=== PATIENT | female | born 2000 | race Native Hawaiian/Other Pacific Islander ===

== ENCOUNTER 2022-09-26 12:11 | Emergency (ER) | payer BC, SELFPAY ==
[2022-09-26 12:43] VITALS: BP 112/64; PULSE 74; RESP 18; TEMP 36.4; O2SAT 98; BMI 28.3
--- NOTE | 2022-09-26 14:59 | ED.NEUROSD ---
HPI - Neuro Symptoms/Deficit General Time Seen by Provider: 15:00 Date Seen: 09/26/22 Chief Complaint: Neuro Symptoms/Altered Deficit Stated Complaint: R side face numb Time Seen by Provider: 09/26/22 14:57 Source: patient and RN notes reviewed Mode of arrival: ambulatory Limitations: no limitations History of Present Illness HPI Narrative: Patient is a very pleasant 22-year-old female previously healthy and denies who comes to the emergency room for evaluation regarding right facial droop. Patient states that she went to work on MondaySeptember 23 and her coworkers noted that she was talking funny. They states she was talking out the left side of her mouth. States that she at did not notice it but it has worsened. And she notes that she has cannot move the right side of her face. She does agree that her right side of her face feels funny because it will not move. She agrees that she has altered taste on her tongue. She denies any loud sound in her ears. She has not been experiencing any lesions. She has not had fever or chills or any vomiting. She notes that she has a funny sensation around her right eyebrow. She has never had anything like this happened to her in the past. She notes no other weakness. She is able to close her eyes. Related Data Previous Rx's Medication Instructions Recorded prednisone 20 mg tablet 40 mg PO BID 7 days #28 tabs 09/26/22 valacyclovir 1 gram tablet 1,000 mg PO TID #21 tabs 09/26/22 (Valtrex) Allergies Allergy/AdvReac Type Severity Reaction Status Date / Time No Known Drug Allergies Allergy Verified 09/26/22 12:42 Review of Systems Status of ROS: Reports: 10 or more systems reviewed and unremarkable except as noted in History and below Const: Denies: fever or chills Eyes: Denies: change in vision, blurry vision, light sensitivity, eye discomfort or eye discharge ENMT: Denies: throat pain, neck pain, throat swelling or vertigo Cardio: Denies: chest pain or shortness of breath with exertion Resp: Denies: shortness of breath or cough GI: Denies: abdominal pain, nausea or vomiting Musculo: Denies: neck pain Integ/Breast: Denies: rash, redness, skin swelling or sores Neuro: Denies: headache, numbness in extremities, weakness in extremities or vertigo Allergy/Immuno: Denies: throat swelling PFSH [facility] Social History Smoking Status: Current some day smoker Do you use any of these nicotine containing products: Vaping Products Second hand tobacco smoke exposure: No How often do you have a drink containing alcohol: monthly or less How many standard drinks containing alcohol do you have on a typical day: 1 or 2 How often do you have six or more drinks on one occasion: Never AUDIT-C Alcohol total score: 1 Non-prescribed substance use: marijuana (any form) and opiods/painkillers service: No Exam Narrative: Exam Narrative: Patient is alert and oriented. She has pupils that are equal round and reactive and EOM is full. She is unable to raise her right eyebrow and when she smiles she does not move her right cheek. There is some slight loss of nasolabial fold. Fortunately she is able to close her eyes although when I ask her to hold her eyes shut I easily opened the right eyelid. Oral cavity moist mucous membranes tongue is midline. TMs bilaterally without erythema. No lesions noted in the ear canals. Neck is supple without lymphadenopathy heart with regular rate and lungs are clear to auscultation. Const: Vital Signs, click to edit/add: Vital Signs - 24 hr 09/26/22 12:43 Temperature 97.5 F L Pulse Rate [Pulse Oximeter] 74 Respiratory Rate 18 Blood Pressure [Ri ght Upper Arm] 112/64 Pulse Oximetry 98 Oxygen Delivery Me thod Room Air Documenting provider has reviewed patient's vital signs: yes Eye: Direct Ophthalmoscopy: no photophobia Course Course Hospital Course: Differential diagnosis includes Holley's palsy, tumor, appy CVA. At this time however patient appears to have classic symptoms of Holley's palsy with worsening symptoms he lack and are upper and lower facial affected. In addition her taste has been altered. Vital Signs Vital signs: Initial Vital Signs Temperature 97.5 F L 09/26/22 12:43 Temperature Source Temporal Artery Scan 09/26/22 12:43 Pulse Rate 74 09/26/22 12:43 Pulse Rhythm Regular 09/26/22 12:43 Respiratory Rate 18 09/26/22 12:43 Blood Pressure 112/64 09/26/22 12:43 Blood Pressure Mean 80 09/26/22 12:43 Blood Pressure Position Sitting 09/26/22 12:43 Pulse Oximetry 98 09/26/22 12:43 Oxygen Delivery Method Room Air 09/26/22 12:43 Vital Signs Temperature 97.5 F L 09/26/22 12:43 Pulse Rate 74 09/26/22 12:43 Respiratory Rate 18 09/26/22 12:43 Blood Pressure 112/64 09/26/22 12:43 Pulse Oximetry 98 09/26/22 12:43 Oxygen Delivery Method Room Air 09/26/22 12:43 Temperature 97.5 F L 09/26/22 12:43 Pulse Rate 74 09/26/22 12:43 Respiratory Rate 18 09/26/22 12:43 Blood Pressure 112/64 09/26/22 12:43 Pulse Oximetry 98 09/26/22 12:43 Oxygen Delivery Method Room Air 09/26/22 12:43 MDM - Neuro Symptoms/Deficit MDM Narrative Medical decision making narrative: 1. 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 I would recommend however prednisone 40 mg p.o. b.i.d. for 7 days. In addition Valtrex 1 g p.o. t.i.d. x7 days. Who I did state to patient that starting these medications earlier is optimal but we are starting them within 72 hours of onset. Would recommend recheck at the local doctor's office this week to ensure that she still is able to close her eye. At this time she does not appear to need any eye lubrication but she may have worsening symptoms continue. No would recommend a check of Lyme as well although she does not report any bites. However Lyme disease is endemic in our area. 2. Disposition-home at this time. Return as needed for worsening symptoms especially for onset of left-sided weakness other focal neurological deficits. Medical Records Attestation: I reviewed the patient's medical records. Discharge Plan Discharge Clinical Impression: Holley's palsy Patient Disposition: Home, Self-Care Condition: Stable Instructions: Holley Palsy (ED) Additional Instructions: Start 2 medications today. One will be prednisone which is a steroid an anti-inflammatory. The other will be Valtrex which is an antiviral medication. I would like you to follow-up in the clinic this week for a blood draw for Lyme disease as well as a recheck to ensure that your eyelid is still closing. Return to the emergency room for worsening symptoms or onset of new symptoms. Prescriptions: New prednisone 20 mg tablet 40 mg PO BID 7 Days Qty: 28 0RF valacyclovir [Valtrex] 1 gram tablet 1,000 mg PO TID Qty: 21 0RF Follow Up/Referrals: Stella Shah MD [Staff Physician] - Stand Alone Forms: [employer] Info Instructions
== END 2022-09-26 15:30 | disposition home or self-care (01) ==
PROVIDERS: Emergency Provider Family Medicine
DX: G51.0 Bell's palsy (principal)
CPT/HCPCS: 99283